=== PATIENT | male | born 1950 | race Caucasian/White ===

== ENCOUNTER 2019-07-30 12:09 | Inpatient (IN) | payer BC, OTHER ==
[~2019-07-30] VITALS: Ht 188 cm; Wt 111.8 kg
[~2019-07-30 12:09] MED LIST: ACET325T9 PO; AMLO5TAB10 PO; ASPI-482 PO; CEFU250T PO; CELE200C PO; DILT120C2 PO; DILT120T PO; DILT30TA26 PO; FLEC100T PO; HYDR-2678 PO; IBUP400T18 PO; METR500T PO; RIVA10TA PO; TERA5CAP3 PO
--- NOTE | 2019-07-30 12:44 | PHYS DOC ---
Past History Past Medical History: A-Fib, Hypertension Past Surgical History: Tonsillectomy, Other Smoking: Non-smoker Alcohol Use: Occasionally Drug Use: None General Adult EDM: Chief Complaint: WEAKNESS/GENERALIZED HPI: HPI: 68-year-old male significant history of hypertension, atrial fibrillation on Xarelto, CVA, who presents per direction of primary physician for evaluation of ongoing illness in the setting of recent diagnosis of COVID19. Has been feeling generally unwell over the last 5 days or so, described as diffuse myalgias and arthralgias, fevers, chills, mild cough and dyspnea. No chest pain. No abdominal pain, nausea or vomiting. Does report some loose bowel movements in termittently. Review of Systems: Review of Systems: Gen: Reports fever, chills. Eyes: No blurred vision, diplopia. ENT: No nasal congestion, sore throat. CV: No CP, palpitations. Resp. Reports SOB, cough. GI: No abd pain, N/V. : No dysuria, hematuria. Neuro: No JOHNSON, dizziness, weakness. MSK: No back pain. Reports myalgias. Skin: No acute rash or lesion. Heart Score: Risk Factors: Risk Factors: DM, Current or recent (<one month) smoker, HTN, HLP, family history of CAD, obesity. Risk Scores: Score 0 - 3: 2.5% MACE over next 6 weeks - Discharge Home Score 4 - 6: 20.3% MACE over next 6 weeks - Admit for Clinical Observation Score 7 - 10: 72.7% MACE over next 6 weeks - Early Invasive Strategies Allergies: Allergies: Allergies Coded Allergies Type Severity Reaction Last Updated Verified Sulfa (Sulfonamide Antibiotics) Allergy Intermediate Unknown 05/21/14 Yes Physical Exam: PE: Gen: NAD. Head: NC/AT. Eyes: No scleral icterus. No conjunctival injection. ENT: MMM. Posterior OP clear. Neck: Supple. NT. CV: RRR. Peripheral pulses intact. Resp: CTAB. Abd: Soft. NT. ND. MSK: No peripheral cyanosis. No edema. Neuro: Awake and alert. Skin. Warm. Dry. No acute rash. Psych: Appropriate mood & affect. Current Patient Data: Labs: Laboratory Tests Test 07/30/19 12:42 White Blood Count 7.1 x10^3/uL (4.0-11.0) Red Blood Count 3.89 x10^6/uL (4.30-5.70) L Hemoglobin 12.5 g/dL (13.0-17.5) L Hematocrit 36.7 % (39.0-53.0) L Mean Corpuscular Volume 94 fL (79-100) Mean Corpuscular Hemoglobin 32 pg (25-35) Mean Corpuscular Hemoglobin Concent 34 g/dL (31-37) Red Cell Distribution Width 12.8 % (11.5-14.5) Platelet Count 236 x10^3/uL (140-400) Neutrophils (%) (Auto) 85 % (31-73) H Lymphocytes (%) (Auto) 7 % (24-48) L Monocytes (%) (Auto) 8 % (0-9) Eosinophils (%) (Auto) 0 % (0-3) Basophils (%) (Auto) 0 % (0-3) Neutrophils # (Auto) 6.0 x10^3uL (1.8-7.7) Lymphocytes # (Auto) 0.5 x10^3/uL (1.0-4.8) L Monocytes # (Auto) 0.6 x10^3/uL (0.0-1.1) Eosinophils # (Auto) 0.0 x10^3/uL (0.0-0.7) Basophils # (Auto) 0.0 x10^3/uL (0.0-0.2) Sodium Level 135 mmol/L (136-145) L Potassium Level 4.2 mmol/L (3.5-5.1) Chloride Level 99 mmol/L (98-107) Carbon Dioxide Level 24 mmol/L (21-32) Anion Gap 12 (6-14) Blood Urea Nitrogen 21 mg/dL (8-26) Creatinine 1.5 mg/dL (0.7-1.3) H Estimated GFR (Cockcroft-Gault) 46.5 BUN/Creatinine Ratio 14 (6-20) Glucose Level 129 mg/dL (70-99) H Lactic Acid Level 1.7 mmol/L (0.4-2.0) Calcium Level 8.9 mg/dL (8.5-10.1) Magnesium Level 1.9 mg/dL (1.8-2.4) Total Bilirubin 0.7 mg/dL (0.2-1.0) Aspartate Amino Transferase (AST) 62 U/L (15-37) H Alanine Aminotransferase (ALT) 86 U/L (16-63) H Alkaline Phosphatase 71 U/L (46-116) Troponin I Quantitative < 0.017 ng/mL (0-0.055) FZ-Fjb-P-Type Natriuretic Peptide 887 pg/mL (0-124) H Total Protein 7.6 g/dL (6.4-8.2) Albumin 3.3 g/dL (3.4-5.0) L Albumin/Globulin Ratio 0.8 (1.0-1.7) L Vital Signs: Vital Signs Date Time Temp Pulse Resp B/P (MAP) Pulse Ox O2 Delivery O2 Flow Rate FiO2 07/30/19 12:34 100.4 84 16 136/91 (106) 98 Room Air EKG: EKG: [] Radiology/Procedures: Radiology/Procedures: CHEST AP ONLY 07/30/2019 12:38 PM INDICATION: Shortness of air COMPARISON: None available TECHNIQUE: Portable frontal view of the chest is provided. FINDINGS: The cardiomediastinal silhouette is within normal limits. There is bibasilar subsegmental atelectasis. There are no significant pleural effusions. There is no pulmonary vascular congestion. No pneumothorax. No suspicious osseous abnormality. Left rotator cuff anchors are present. IMPRESSION: There is bibasilar subsegmental atelectasis predominantly involving the medial lower lobes. Electronically signed by: Jennifer Echavarria MD (07/30/2019 1:36 PM) [facility] Course & Med Decision Making: Course & Med Decision Making Pertinent Labs and Imaging studies reviewed. (See chart for details) In summary, 68M p/w viral illness, known to be COVID19+ (also strep pneumoniae Ag positive). Labs unremarkable. CXR with atelectatic changes. Will admit to Dr. Graham. Amy Disclaimer: Amy Disclaimer: This electronic medical record was generated, in whole or in part, using a voice recognition dictation system. Departure Departure: Impression: Primary Impression: Generalized weakness Additional Impression: COVID-19 Disposition: 01 HOME/RESIDENCE PRIOR TO ADM Admitting Physician: Tasha Graham Condition: STABLE Referrals: TASHA GRAHAM MD (PCP) Justification of Admission: Justification of Admission: Justification of Admission Dx: Yes Comminuty Aquired Pneumonia: Out Pt Tx Failure Sepsis: Infection CAN LIZAMA DO Jul 30, 2019 12:44
[2019-07-30] MEDS ORDERED: ACETAMINOPHEN 325 MG TABLET PO ONE (12:45)
[2019-07-30] MEDS ORDERED: cefTRIAXone SODIUM 1 GM VIAL ONE (12:52)
[2019-07-30] MEDS ORDERED: IV NORMAL SALINE 50ML 50 ML ONE (12:52)
[2019-07-30 12:59] LABS: BASO % 0 % (0-3); EOS % 0 % (0-3); HEMATOCRIT 36.7 % (39.0-53.0); HEMOGLOBIN 12.5 g/dL (13.0-17.5); LYMPH # 0.5 x10^3/uL (1.0-4.8); LYMPH % 7 % (24-48); MEAN CORPUSCULAR HEMOGLOBIN 32 pg (25-35); MEAN CORPUSCULAR HGB CONC 34 g/dL (31-37); MEAN CORPUSCULAR VOLUME 94 fL (79-100); MONO # 0.6 x10^3/uL (0.0-1.1); MONO % 8 % (0-9); NEUT % 85 % (31-73); PLATELET COUNT 236 x10^3/uL (140-400); RED BLOOD COUNT 3.89 x10^6/uL (4.30-5.70); RED CELL DISTRIBUTION WIDTH 12.8 % (11.5-14.5); WHITE BLOOD COUNT 7.1 x10^3/uL (4.0-11.0)
[2019-07-30 13:10] LABS: CALCIUM 8.9 mg/dL (8.5-10.1); CREATININE 1.5 mg/dL (0.7-1.3); GFR 46.5; POTASSIUM 4.2 mmol/L (3.5-5.1)
[2019-07-30 13:22] LABS: ALBUMIN 3.3 g/dL (3.4-5.0); ALBUMIN/GLOBULIN RATIO 0.8 (1.0-1.7); MAGNESIUM 1.9 mg/dL (1.8-2.4); TOTAL BILIRUBIN 0.7 mg/dL (0.2-1.0); TOTAL PROTEIN 7.6 g/dL (6.4-8.2)
--- NOTE | 2019-07-30 13:38 | RAD ---
CHEST AP ONLY 07/30/2019 12:38 PM INDICATION: Shortness of air COMPARISON: None available TECHNIQUE: Portable frontal view of the chest is provided. FINDINGS: The cardiomediastinal silhouette is within normal limits. There is bibasilar subsegmental atelectasis. There are no significant pleural effusions. There is no pulmonary vascular congestion. No pneumothorax. No suspicious osseous abnormality. Left rotator cuff anchors are present. IMPRESSION: There is bibasilar subsegmental atelectasis predominantly involving the medial lower lobes. Electronically signed by: Jennifer Echavarria MD (07/30/2019 1:36 PM) [facility]
[2019-07-30] MEDS ORDERED: ACETAMINOPHEN 325 MG TABLET PO PRN (14:00)
[2019-07-30] MEDS ORDERED: ONDANSETRON PF 4 MG/2 ML VIAL. IVP PRN (14:00)
[2019-07-30] MEDS ORDERED: IV NORMAL SALINE 1,000ML 1,000 ML IV ONE (14:15)
[2019-07-30 17:00] VITALS: BP 135/84
[2019-07-30 19:25] VITALS: BP 122/97
[2019-07-30] MEDS ORDERED: PANT40TA5 PO (20:03)
[2019-07-30] MEDS ORDERED: RIVA20TA2 PO (20:03)
[2019-07-30] MEDS ORDERED: MELA3TAB4 PO (20:03)
[2019-07-30] MEDS ORDERED: ATOR20TA58 PO (20:03)
[2019-07-30] MEDS ORDERED: DOFE500C4 PO (20:03)
[2019-07-30] MEDS ORDERED: GABA600T7 PO (20:03)
[2019-07-30] MEDS ORDERED: MULT-245 PO (20:06)
[2019-07-30] MEDS ORDERED: ZOLPIDEM 5 MG TABLET. PO PRN (20:15)
[2019-07-30] MEDS ORDERED: ACETAMINOPHEN 500 MG TABLET PO PRN (20:15)
[2019-07-30] MEDS: MELATONIN 3 MG TABLET PO SCH (21:00)
[2019-07-30] MEDS: GABAPENTIN 300 MG CAPSULE. PO SCH (21:19)
[2019-07-30] MEDS: AZITHROMYCIN 250 MG TABLET. PO SCH (21:19)
[2019-07-30] MEDS: methylPREDNISolone 4 MG TABLET. PO SCH (21:19)
[2019-07-30] MEDS: TERAZOSIN 5 MG CAPSULE. PO SCH (21:20)
[2019-07-30] MEDS: ATORVASTATIN CALCIUM 20 MG TABLET PO SCH (21:20)
[2019-07-30] MEDS: RIVAROXABAN 10 MG TABLET. PO SCH (21:20)
[2019-07-30] MEDS: BENZONATATE 100 MG CAPSULE. PO SCH (21:21)
[2019-07-30] MEDS: Dofetilide 500 MCG PO SCH (22:04)
[2019-07-30 22:15] VITALS: BP 135/77
[2019-07-30] MEDS: ACETAMINOPHEN 500 MG TABLET PO PRN (22:18)
[2019-07-31 06:10] VITALS: BP 149/67
[2019-07-31] MEDS: PANTOPRAZOLE 40 MG TABLET. PO SCH (07:55)
[2019-07-31] MEDS: BENZONATATE 100 MG CAPSULE. PO SCH ×3 (07:55→20:38)
[2019-07-31] MEDS: methylPREDNISolone 4 MG TABLET. PO SCH (07:55)
[2019-07-31] MEDS: MULTIVITAMIN with MINERAL TABLET. PO SCH (07:55)
[2019-07-31] MEDS: Dofetilide 500 MCG PO SCH ×2 (07:56→20:39)
[2019-07-31] MEDS: GABAPENTIN 300 MG CAPSULE. PO SCH ×3 (07:56→20:38)
[2019-07-31] MEDS ORDERED: ALBUTEROL SULFATE 8GM INHALER. INH PRN (09:45)
[2019-07-31] MEDS: methylPREDNISolone SOD SUCC PF 40 MG/ML VIAL. IV SCH ×2 (10:21→20:38)
[2019-07-31 10:50] VITALS: BP 146/73
--- NOTE | 2019-07-31 12:44 | RAD ---
EXAM: CT CHEST WITHOUT CONTRAST HISTORY: Pneumonia COMPARISON: 11/26/2015 TECHNIQUE: Helical CT of the chest performed without contrast. Coronal and sagittal reformats were obtained. One or more of the following individualized dose reduction techniques were utilized for this examination: 1. Automated exposure control 2. Adjustment of the mA and/or kV according to patient size 3. Use of iterative reconstruction technique. FINDINGS: Thyroid gland and thoracic inlet: Normal. Heart and great vessels: Heart is normal in size. No pericardial effusion. Thoracic aorta is normal in caliber. Mediastinum and kesha: There are small mediastinal lymph nodes, decreased in size from 2016. Lungs and pleura: Most artifact limits evaluation of the lungs. There are new groundglass opacities in the lower lobes, left upper lobe, and much lesser extent in the right upper and lower lobes. There is a 5 mm pulmonary nodule in the left upper lobe, which may have been present on prior exam (image 26, series 2). Unchanged 3 mm pulmonary nodule in the right upper lobe (image 30, series 2). Multiple tree-in-bud nodules in the left upper and lower lobes on prior exam resolved. No pleural effusion. Chest wall and axillae: Normal. Upper abdomen: Normal. Bones: No acute osseous abnormality. IMPRESSION: 1. Limited evaluation of lungs due to motion artifact. There are new groundglass opacities in the lower lobes and left upper lobe, and a few in the right middle and upper lobes. This is nonspecific but may be due to atypical infection such as viral infection. 2. There are two 2-5 mm pulmonary nodules in the upper lobes. Multiple additional pulmonary nodules in the left upper and lower lobes on prior exam have resolved. Electronically signed by: Kristin Louie MD (07/31/2019 12:40 PM) [place] [id number]
[2019-07-31 14:39] VITALS: BP 123/74
[2019-07-31] MEDS: ACETAMINOPHEN 500 MG TABLET PO PRN (14:56)
[2019-07-31] MEDS: RIVAROXABAN 10 MG TABLET. PO SCH (16:11)
[2019-07-31 19:52] VITALS: BP 109/70
[2019-07-31] MEDS: ATORVASTATIN CALCIUM 20 MG TABLET PO SCH (20:38)
[2019-07-31] MEDS: MELATONIN 3 MG TABLET PO SCH (20:38)
[2019-07-31] MEDS: TERAZOSIN 5 MG CAPSULE. PO SCH (20:39)
[2019-07-31] MEDS: AZITHROMYCIN 250 MG TABLET. PO SCH (20:39)
--- NOTE | 2019-07-31 22:50 | PN ---
DATE: SUBJECTIVE: A 68-year-old gentleman returned back from [place], began to feel ill over the last week or so, came in and was found to have pneumonia, was placed on antibiotics as an outpatient. He continued to do worse with increased coughing, shortness of breath, fever, chills and generalized weakness. The patient came in through the Emergency Room, where he was seen. He was positive for COVID-19 and Streptococcus pneumoniae. He had elevated liver enzymes. The patient says he is a smidgen better this morning, but not much. OBJECTIVE: Blood pressure 146/73, respiratory rate 20, pulse 93. He is still running a low-grade temperature of 99.8, although on admission was up to 100.4. The patient continues on IV Rocephin, IV Solu-Medrol as well as that of Zithromax. The patient's liver enzymes are slightly elevated and would have to look backwards to see if that is a chronic problem. He is on antiarrhythmics, so hydroxychloroquine will be used with this situation. He is on dofetilide 500 ____ b.i.d. for arrhythmias as well as Xarelto anticoagulant. The patient is alert and oriented. He still does not look good, feel good. He is very weak. His lungs are diminished, primarily in the bases, with some crackles noted. Cardiovascular, regular sinus rhythm. Abdomen, soft, nontender. Extremities, no clubbing, cyanosis or edema. IMAGING: CT scan showed ____ artifact, ground glass opacities in the lower lobes, left lower lobe, a few in the right middle lobe. There is a 2.5-mm pulmonary nodule in the upper lobes. Multiple additional pulmonary nodules have close ____ for prior exams. In any case, the patient has COVID-19 pneumonia, acute respiratory failure. It is technically sepsis with elevated liver enzymes, anemia of chronic disease, cardiac arrhythmias. The patient continued to be monitored carefully. Continue with IV antibiotic therapy, increase it to 2 grams. We will also consider the use of remdesivir as a possible adjunct to his therapy, if he does not continue to show signs of improvement. His oxygen saturation has hovered as low as 92%, so he does seem to meet some protocol as well as some other indications. IMPRESSION: As above, we will continue close monitoring. He is on the COVID-19 unit in isolation. TASHA GRAHAM MD DR: CORETTA/herson JOB#: [id number] / [id number]
[2019-08-01 00:50] VITALS: BP 114/64
[2019-08-01 06:12] VITALS: BP 131/82
[2019-08-01 06:40] LABS: BASO % 0 % (0-3); EOS % 0 % (0-3); HEMATOCRIT 33.4 % (39.0-53.0); HEMOGLOBIN 11.3 g/dL (13.0-17.5); LYMPH # 0.4 x10^3/uL (1.0-4.8); LYMPH % 3 % (24-48); MEAN CORPUSCULAR HEMOGLOBIN 33 pg (25-35); MEAN CORPUSCULAR HGB CONC 34 g/dL (31-37); MEAN CORPUSCULAR VOLUME 96 fL (79-100); MONO # 0.5 x10^3/uL (0.0-1.1); MONO % 5 % (0-9); NEUT # 10.9 x10^3uL (1.8-7.7); NEUT % 92 % (31-73); PLATELET COUNT 248 x10^3/uL (140-400); RED BLOOD COUNT 3.47 x10^6/uL (4.30-5.70); RED CELL DISTRIBUTION WIDTH 12.9 % (11.5-14.5); WHITE BLOOD COUNT 11.9 x10^3/uL (4.0-11.0)
[2019-08-01 06:55] LABS: CALCIUM 8.7 mg/dL (8.5-10.1); CREATININE 1.4 mg/dL (0.7-1.3); GFR 50.4
[2019-08-01 06:59] LABS: ALBUMIN 2.8 g/dL (3.4-5.0); DIRECT BILIRUBIN 0.2 mg/dL (0.0-0.2); TOTAL BILIRUBIN 0.5 mg/dL (0.2-1.0); TOTAL PROTEIN 7.8 g/dL (6.4-8.2)
[2019-08-01] MEDS: BENZONATATE 100 MG CAPSULE. PO SCH ×3 (08:19→21:02)
[2019-08-01] MEDS: GABAPENTIN 300 MG CAPSULE. PO SCH ×3 (08:19→21:02)
[2019-08-01] MEDS: MULTIVITAMIN with MINERAL TABLET. PO SCH (08:19)
[2019-08-01] MEDS: PANTOPRAZOLE 40 MG TABLET. PO SCH (08:20)
[2019-08-01] MEDS: Dofetilide 500 MCG PO SCH ×2 (08:20→21:01)
[2019-08-01] MEDS: methylPREDNISolone SOD SUCC PF 40 MG/ML VIAL. IV SCH ×2 (08:20→21:00)
[2019-08-01] MEDS ORDERED: OSELTAMIVIR 75 MG CAPSULE PO SCH (09:15)
[2019-08-01] MEDS ORDERED: NON FORMULARY ITEM 1 EA in IV NORMAL SALINE 250ML 250 ML IV ONE (10:30)
[2019-08-01 11:00] VITALS: BP 134/77
[2019-08-01 14:44] VITALS: BP 138/79
--- NOTE | 2019-08-01 14:52 | RAD ---
EXAM: Abdomen sonogram. HISTORY: Elevated liver function laboratory values. TECHNIQUE: Sonographic imaging of the abdomen was performed. COMPARISON: None. FINDINGS: The liver parenchyma is echogenic. There is a 9 mm circumscribed echogenic right hepatic lobe. The gallbladder is contracted due to the postprandial status the patient. This limits evaluation. The common bile duct is normal in caliber for patient age. The right kidney is unremarkable. The pancreas is unremarkable. The inferior cava is obscured. No ascites is seen. IMPRESSION: 1. Hepatic steatosis. 2. 9 mm echogenic lesion within the liver. In the absence of known malignancy, this likely a hemangioma. 3. Contracted gallbladder, limiting evaluation. Electronically signed by: Carmella Duncan MD (08/01/2019 2:48 PM) [facility]
[2019-08-01] MEDS: RIVAROXABAN 10 MG TABLET. PO SCH (17:12)
[2019-08-01 19:56] VITALS: BP 160/89
[2019-08-01] MEDS: MELATONIN 3 MG TABLET PO SCH (21:00)
[2019-08-01] MEDS: AZITHROMYCIN 250 MG TABLET. PO SCH (21:02)
[2019-08-01] MEDS: TERAZOSIN 5 MG CAPSULE. PO SCH (21:02)
[2019-08-01] MEDS: ATORVASTATIN CALCIUM 20 MG TABLET PO SCH (21:02)
--- NOTE | 2019-08-01 22:31 | PN ---
DATE: 08/01/2019 SUBJECTIVE: A 68-year-old male in with sepsis and positive SIRS. The patient otherwise seems to be doing reasonably somewhat better, but still requires additional oxygen, remained in his oxygen saturation. He also had elevated liver enzymes and his hepatic steatosis and there is a lesion, possibly could be a hemangioma, possible malignancy. We will have to follow that up as an outpatient. OBJECTIVE: VITAL SIGNS: The patient's blood pressure is 138/79, respiratory rate 20, pulse 90, afebrile presently. LUNGS: Diminished, poor movement of air, but improved somewhat from previous days. His oxygen saturation did drop down to 89% on room air. He is back on 1-2 liters as indicated. Otherwise, alert and oriented. CARDIOVASCULAR: Regular sinus rhythm. ABDOMEN: Soft, nontender. EXTREMITIES: No clubbing, cyanosis or edema. PLAN: Continue to monitor the patient accordingly, make further evaluation on him as indicated. IMPRESSION: Sepsis; SIRS-19 infection and Streptococcus pneumoniae; anemia of chronic disease; liver enzymes coming down, continue to monitor and severe protein malnutrition. TASHA GRAHAM MD DR: CORETTA/herson JOB#: [id number] / [id number]
[2019-08-01 22:50] VITALS: BP 137/78
[2019-08-02 05:39] VITALS: BP 113/66
[2019-08-02 08:11] LABS: CREATININE 1.5 mg/dL (0.7-1.3); GFR 46.5
[2019-08-02] MEDS: Dofetilide 500 MCG PO SCH ×2 (08:28→20:58)
[2019-08-02] MEDS: GABAPENTIN 300 MG CAPSULE. PO SCH ×3 (08:29→20:58)
[2019-08-02] MEDS: MULTIVITAMIN with MINERAL TABLET. PO SCH (08:29)
[2019-08-02] MEDS: PANTOPRAZOLE 40 MG TABLET. PO SCH (08:29)
[2019-08-02] MEDS: methylPREDNISolone SOD SUCC PF 40 MG/ML VIAL. IV SCH ×2 (08:29→20:59)
[2019-08-02] MEDS: BENZONATATE 100 MG CAPSULE. PO SCH ×3 (08:30→20:59)
[2019-08-02 08:32] LABS: ALBUMIN 2.6 g/dL (3.4-5.0); DIRECT BILIRUBIN 0.2 mg/dL (0.0-0.2); TOTAL BILIRUBIN 0.4 mg/dL (0.2-1.0); TOTAL PROTEIN 7.4 g/dL (6.4-8.2)
[2019-08-02] MEDS: NORMAL SALINE IV SCH (10:14)
[2019-08-02] MEDS: REMDESIVIR IV SCH (10:14)
[2019-08-02 10:26] VITALS: BP 148/84
--- NOTE | 2019-08-02 11:28 | PN ---
DATE: SUBJECTIVE: This is a very pleasant 68-year-old gentleman with sepsis. The patient has COVID-19 infection. He is doing a little bit better. We placed him on remdesivir, the new antiviral, specifically for this particular type of infection. We have also given him situation of some mild methylprednisolone. His oxygen saturation did at one time dropped down to 89. He continues on supplemental oxygen at 1 liter in the low 90s, blood pressure 148/84, respiratory rate 20, pulse 67, afebrile. We will go ahead and repeat chest x-ray in the morning. He does have some elevated liver enzymes, hepatitis panel is pending and we will continue to monitor him. He is alert and oriented. He is a little bit stronger. Lungs are diminished in the bases, slightly improved, but still coarse. He is coughing up phlegm, using his oral MDI. The patient otherwise creatinine is still slightly elevated at 1.5. Liver enzymes have gone up and we are monitoring that in conjunction with the remdesivir for any possible drug interaction pharmacies on top of that drug. He is getting that 200 mg IV and being monitored carefully. IMPRESSION: Therefore, [id number] Streptococcus pneumoniae, acute respiratory distress requiring additional supplemental oxygen, acute on top of chronic renal failure, history of pulmonary nodule, elevated liver enzymes, severe protein malnutrition. PLAN: The patient continued to be monitored carefully, make further evaluation. Continue on IV antibiotic therapy, the remdesivir and steady progress being made there. TASHA GRAHAM MD DR: CORETTA/herson JOB#: [id number] / [id number]
[2019-08-02 15:13] VITALS: BP 147/89
[2019-08-02] MEDS ORDERED: POLYETHYLENE GLYCOL 3350 17 GM PACKET. PO ONE (15:30)
[2019-08-02] MEDS: RIVAROXABAN 10 MG TABLET. PO SCH (17:08)
[2019-08-02 20:35] VITALS: BP 162/81
[2019-08-02] MEDS: ATORVASTATIN CALCIUM 20 MG TABLET PO SCH (20:58)
[2019-08-02] MEDS: TERAZOSIN 5 MG CAPSULE. PO SCH (20:58)
[2019-08-02] MEDS: AZITHROMYCIN 250 MG TABLET. PO SCH (20:59)
[2019-08-02] MEDS: MELATONIN 3 MG TABLET PO SCH (20:59)
[2019-08-02 23:34] VITALS: BP 141/73
[2019-08-03 06:14] VITALS: BP 150/86
[2019-08-03 08:20] LABS: BASO % 0 % (0-3); EOS % 0 % (0-3); HEMATOCRIT 34.1 % (39.0-53.0); HEMOGLOBIN 11.6 g/dL (13.0-17.5); LYMPH # 0.5 x10^3/uL (1.0-4.8); LYMPH % 5 % (24-48); MEAN CORPUSCULAR HEMOGLOBIN 33 pg (25-35); MEAN CORPUSCULAR HGB CONC 34 g/dL (31-37); MEAN CORPUSCULAR VOLUME 96 fL (79-100); MONO # 0.7 x10^3/uL (0.0-1.1); MONO % 7 % (0-9); NEUT % 88 % (31-73); PLATELET COUNT 319 x10^3/uL (140-400); RED BLOOD COUNT 3.54 x10^6/uL (4.30-5.70); RED CELL DISTRIBUTION WIDTH 13.1 % (11.5-14.5); WHITE BLOOD COUNT 9.1 x10^3/uL (4.0-11.0)
[2019-08-03 08:30] LABS: ALBUMIN 2.6 g/dL (3.4-5.0); CALCIUM 8.9 mg/dL (8.5-10.1); CREATININE 1.4 mg/dL (0.7-1.3); DIRECT BILIRUBIN 0.2 mg/dL (0.0-0.2); GFR 50.4; POTASSIUM 4.5 mmol/L (3.5-5.1); TOTAL BILIRUBIN 0.4 mg/dL (0.2-1.0); TOTAL PROTEIN 7.3 g/dL (6.4-8.2)
[2019-08-03] MEDS: BENZONATATE 100 MG CAPSULE. PO SCH ×3 (08:54→21:08)
[2019-08-03] MEDS: GABAPENTIN 300 MG CAPSULE. PO SCH ×3 (08:54→21:07)
[2019-08-03] MEDS: PANTOPRAZOLE 40 MG TABLET. PO SCH (08:54)
[2019-08-03] MEDS: MULTIVITAMIN with MINERAL TABLET. PO SCH (08:54)
[2019-08-03] MEDS: methylPREDNISolone SOD SUCC PF 40 MG/ML VIAL. IV SCH ×2 (08:54→21:07)
[2019-08-03] MEDS: POLYETHYLENE GLYCOL 3350 17 GM PACKET. PO SCH (08:54)
[2019-08-03] MEDS: NORMAL SALINE IV SCH (08:55)
[2019-08-03] MEDS: REMDESIVIR IV SCH (08:55)
[2019-08-03] MEDS: Dofetilide 500 MCG PO SCH ×2 (09:00→21:07)
[2019-08-03 10:23] VITALS: BP 158/88
[2019-08-03] MEDS: amLODIPine BESYLATE 5 MG TABLET PO SCH (14:11)
[2019-08-03 15:09] VITALS: BP 143/83
--- NOTE | 2019-08-03 15:30 | RAD ---
PORTABLE CHEST 1V History: Shortness of breath, positive COVID Comparison: July 30, 2019 Findings: Single view of the chest is submitted. There is increased infiltrate of the mid to superior hemithorax, also some patchy infiltrate of the mid to inferior left hemithorax slightly increased. There is no pneumothorax or significant dependent pleural fluid. Heart size is similar. There are anchor devices of the proximal left humerus. Impression: 1. There is some increased infiltrate of the mid to right hemithorax likely in the right upper lobe, also persistent left base infiltrate slightly increased. Electronically signed by: Parveen Gonzalez MD (08/03/2019 3:27 PM) [id number]
[2019-08-03] MEDS: RIVAROXABAN 10 MG TABLET. PO SCH (17:17)
--- NOTE | 2019-08-03 17:38 | PN ---
DATE: SUBJECTIVE: He is a 68-year-old white male in with sepsis. He has COVID-19 pneumonia. He has had acute respiratory failure. He is anemic. He says he is feeling a little better. He has elevated liver enzymes as well that are being followed because he is on the remdesivir antiviral and using methylprednisolone IV as well as oral MDIs. The oxygen saturations have been varied. His last one in the chart was at 90% with 2.5 liters. We will repeat chest x-ray. Blood pressure 158/88, respiratory rate 20, pulse 73. He has been afebrile now for the last 36 hours. We will continue to monitor him on that. We will repeat the COVID-19 test. Otherwise, his creatinine has stayed at 1.4 with a GFR of 50, blood sugar 182, AST of 91, ALT of 280, albumin low at 2.6. White count 9, hemoglobin 11.6 and hematocrit 34. The patient continues on his Levaquin and Zithromax as well. He says he feels a little stronger. PHYSICAL EXAMINATION: GENERAL: He is alert and oriented. LUNGS: Just some mild crackles in the left lower lobe, otherwise, basically clear, although diminished. CARDIOVASCULAR: Regular sinus rhythm. ABDOMEN: Soft, somewhat distended. He has been having good bowel movements. He is moving around freely in his room and he is on Xarelto. IMPRESSION: Therefore, sepsis, SARS COVID-19, Streptococcus pneumoniae, acute respiratory distress requiring additional supplemental oxygen, anemia, acute on top of chronic renal failure, history of pulmonary nodule, elevated liver enzymes, severe protein malnutrition and hyperglycemia secondary to the methylprednisolone. PLAN: We will continue to monitor the patient and get a chest x-ray, repeat COVID testing and make further adjustments of meds depending on that situation because he still requires oxygen at a fairly good rate just to maintain above in the low 90s. We will continue to monitor at this time. TASHA GRAHAM MD DR: CORETTA/herson JOB#: [id number] / [id number]
[2019-08-03] MEDS: MELATONIN 3 MG TABLET PO SCH (21:00)
[2019-08-03] MEDS: TERAZOSIN 5 MG CAPSULE. PO SCH (21:07)
[2019-08-03] MEDS: AZITHROMYCIN 250 MG TABLET. PO SCH (21:08)
[2019-08-03] MEDS: ATORVASTATIN CALCIUM 20 MG TABLET PO SCH (21:08)
[2019-08-03 21:24] VITALS: BP 134/73
[2019-08-03 23:30] VITALS: BP 114/58
[2019-08-04 05:49] VITALS: BP 135/76
[2019-08-04] MEDS: BENZONATATE 100 MG CAPSULE. PO SCH ×2 (08:20→12:54)
[2019-08-04] MEDS: MULTIVITAMIN with MINERAL TABLET. PO SCH (08:20)
[2019-08-04] MEDS: GABAPENTIN 300 MG CAPSULE. PO SCH ×2 (08:20→12:54)
[2019-08-04] MEDS: methylPREDNISolone SOD SUCC PF 40 MG/ML VIAL. IV SCH (08:20)
[2019-08-04] MEDS: AZITHROMYCIN 250 MG TABLET. PO SCH (08:21)
[2019-08-04] MEDS: POLYETHYLENE GLYCOL 3350 17 GM PACKET. PO SCH (08:21)
[2019-08-04] MEDS: amLODIPine BESYLATE 5 MG TABLET PO SCH (08:21)
[2019-08-04] MEDS: PANTOPRAZOLE 40 MG TABLET. PO SCH (08:22)
[2019-08-04] MEDS: Dofetilide 500 MCG PO SCH (08:22)
[2019-08-04] MEDS ORDERED: CHOLECALCIFEROL (VITAMIN D3) 1,000 UNIT TABLET PO SCH (09:00)
[2019-08-04 11:06] VITALS: BP 158/88
[2019-08-04] MEDS: REMDESIVIR IV SCH (11:20)
[2019-08-04] MEDS: NORMAL SALINE IV SCH (11:20)
== END 2019-08-04 16:30 | disposition short-term general hospital (02) | DRG 871 ==
LOC: ER 12:09 → 1 SOUTH 14:00
PROVIDERS: ADMIT Family Medicine; ATTEND Family Medicine
DX: A41.89 Other specified sepsis (principal); E43 Unspecified severe protein-calorie malnutrition; J12.89 Other viral pneumonia; U07.1 COVID-19; J96.00 Acute respiratory failure, unspecified whether with hypoxia or hypercapnia; J98.11 Atelectasis; B95.3 Streptococcus pneumoniae as the cause of diseases classified elsewhere; D63.8 Anemia in other chronic diseases classified elsewhere; I12.9 Hypertensive chronic kidney disease with stage 1 through stage 4 chronic kidney disease, or unspecified chronic kidney disease; I48.91 Unspecified atrial fibrillation; K76.0 Fatty (change of) liver, not elsewhere classified; N18.9 Chronic kidney disease, unspecified; R73.9 Hyperglycemia, unspecified; T38.0X5A Adverse effect of glucocorticoids and synthetic analogues, initial encounter; Z79.01 Long term (current) use of anticoagulants; Z86.73 Personal history of transient ischemic attack (TIA), and cerebral infarction without residual deficits; Y92.89 Other specified places as the place of occurrence of the external cause; Z68.31 Body mass index [BMI] 31.0-31.9, adult; Z88.2 Allergy status to sulfonamides
CPT/HCPCS: 36415; 71045; 71250; 76705; 80048; 80053; 80076; 82565; 83605; 83735; 83880; 84484; 85025; 86705; 86709; 86803; 87040; 87340; 96361; 96365; J0456; J0696; J1956; J2920; J7050; J7509; 99285-25; J7030; U0003-CS

== ENCOUNTER 2021-02-07 12:22 | Emergency (ER) | payer OTHER ==
[~2021-02-07] VITALS: Ht 188 cm; Wt 111.8 kg
[~2021-02-07 12:22] MED LIST changes: +AMLO-186 PO; -AMLO5TAB10 PO; +ATOR20TA58 PO; +DOFE500C4 PO; +GABA600T7 PO; +MELA3TAB4 PO; +MULT-245 PO; +PANT40TA6 PO; +RIVA20TA2 PO
[2021-02-07] MEDS ORDERED: ACETAMINOPHEN 500 MG TABLET PO ONE (12:33)
[2021-02-07] MEDS ORDERED: FAMOTIDINE 20 MG/2 ML VIAL IVP ONE (13:15)
[2021-02-07] MEDS ORDERED: IV NORMAL SALINE 1,000ML 1,000 ML IV SCH (13:15)
[2021-02-07] MEDS ORDERED: ONDANSETRON PF 4 MG/2 ML VIAL. IVP ONE (13:15)
[2021-02-07 13:32] LABS: BASO % 0 % (0-3); EOS % 0 % (0-3); HEMATOCRIT 37.2 % (39.0-53.0); HEMOGLOBIN 12.5 g/dL (13.0-17.5); LYMPH # 0.5 x10^3/uL (1.0-4.8); LYMPH % 6 % (24-48); MEAN CORPUSCULAR HEMOGLOBIN 33 pg (25-35); MEAN CORPUSCULAR HGB CONC 34 g/dL (31-37); MEAN CORPUSCULAR VOLUME 99 fL (79-100); MONO # 0.5 x10^3/uL (0.0-1.1); MONO % 6 % (0-9); NEUT # 7.9 x10^3uL (1.8-7.7); NEUT % 88 % (31-73); PLATELET COUNT 224 x10^3/uL (140-400); RED BLOOD COUNT 3.77 x10^6/uL (4.30-5.70); RED CELL DISTRIBUTION WIDTH 12.9 % (11.5-14.5)
[2021-02-07 13:37] LABS: CALCIUM 8.2 mg/dL (8.5-10.1); GFR 33.2; POTASSIUM 3.8 mmol/L (3.5-5.1)
--- NOTE | 2021-02-07 13:40 | RAD ---
EXAM: Chest, single view. HISTORY: Nausea and vomiting. COMPARISON: 08/03/2019 FINDINGS: A frontal view of the chest is obtained. There is chronic appearing diffuse increased inter stitial opacity. There is no consolidation, pleural effusion or pneumothorax. The heart is normal in size. IMPRESSION: Chronic appearing interstitial changes. No acute pulmonary finding. Electronically signed by: Carmella Duncan MD (02/07/2021 1:38 PM) [id number]
[2021-02-07 13:43] LABS: ALBUMIN 3.6 g/dL (3.4-5.0); DIRECT BILIRUBIN 0.1 mg/dL (0.0-0.2); TOTAL BILIRUBIN 0.5 mg/dL (0.2-1.0)
[2021-02-07 13:44] LABS: INFLUENZA A PATIENT NEGATIVE (NEGATIVE); INFLUENZA B PATIENT NEGATIVE (NEGATIVE)
--- NOTE | 2021-02-07 13:58 | PHYS DOC ---
Past History Past Medical History: A-Fib, Hypertension Past Surgical History: Tonsillectomy, Other Additional Past Surgical Histo: cardiac ablation Smoking: Non-smoker Alcohol Use: None Drug Use: None General Adult EDM: Chief Complaint: WEAKNESS/GENERALIZED HPI: HPI: 70-year-old male past medical history of hypertension and atrial fibrillation, presents the ED with complaints of nausea, vomiting and loose watery diarrhea with associated fever and weakness that started last night. Denies any known sick contacts, poorly prepared food or water. is present in the ED, (patient consents to his/her/their knowledge and involvement in pts' medical care), and asymptomatic. Reports he is vaccinated for Covid and influenza. Believes his sxs are related to a "bad reaction" from a muscle relaxer stating "it made me too relaxed." Review of Systems: Review of Systems: Constitutional: Denies rigidity or chills Eyes: Denies change in visual acuity HENT: Denies nasal congestion or sore throat Respiratory: Denies cough or shortness of breath Cardiovascular: Denies chest pain or edema GI: Denies abdominal pain or constipation or melena or hematochezia or hematemesis : Denies dysuria or hematuria Musculoskeletal: Denies back pain or joint pain Integument: Denies rash or diaphoresis Neurologic: Denies headache, neck stiffness, focal weakness or sensory changes Endocrine: Denies polyuria or polydipsia Lymphatic: Denies swollen glands Psychiatric: Denies depression or anxiety Current Medications: Current Meds: Current Medications Medications (Trade) Dose Ordered Sig/Susan Start Time Stop Time Status Last Admin Dose Admin Acetaminophen (Tylenol) 500 mg STK-MED ONCE 02/07/21 12:33 02/07/21 12:33 DC Famotidine (Pepcid Vial) 20 mg 1X ONCE 02/07/21 13:15 02/07/21 13:16 DC Ondansetron HCl (Zofran) 4 mg 1X ONCE 02/07/21 13:15 02/07/21 13:16 DC Sodium Chloride 1,000 ml @ 1,000 mls/hr Q1H 02/07/21 13:15 02/07/21 14:14 Allergies: Allergies: Allergies Coded Allergies Type Severity Reaction Last Updated Verified Sulfa (Sulfonamide Antibiotics) Allergy Intermediate Unknown 05/21/14 Yes Physical Exam: PE: Constitutional: Well developed, well nourished, no acute distress, non-toxic appearance, febrile HENT: Normocephalic, atraumatic, dry mucous membranes Eyes: EOMI, conjunctiva normal, no discharge. Neck: Normal range of motion, supple, Cardiovascular: S1/2 present, regular rhythm Lungs & Thorax: Speaking in full sentences, bilateral equal chest rise, no tachypnea or increased work of breathing Abdomen: soft, no tenderness, obese, no rigidity Skin: Warm, dry, no erythema, no rash. [] Back: No tenderness, no CVA tenderness. [] Extremities: No tenderness, no cyanosis, no lower extremity edema Neurologic: Alert and oriented X 3, normal motor function, normal sensory function, no focal deficits noted. [] Psychologic: Affect normal, judgement normal, mood normal. [] Current Patient Data: Labs: Laboratory Tests Test 02/07/21 12:38 02/07/21 12:40 Influenza Type A (Rapid) Negative (NEGATIVE) Influenza Type B (Rapid) Negative (NEGATIVE) SARS-CoV-2 Antigen (Rapid) Negative (NEGATIVE) White Blood Count 9.0 x10^3/uL (4.0-11.0) Red Blood Count 3.77 x10^6/uL (4.30-5.70) L Hemoglobin 12.5 g/dL (13.0-17.5) L Hematocrit 37.2 % (39.0-53.0) L Mean Corpuscular Volume 99 fL (79-100) Mean Corpuscular Hemoglobin 33 pg (25-35) Mean Corpuscular Hemoglobin Concent 34 g/dL (31-37) Red Cell Distribution Width 12.9 % (11.5-14.5) Platelet Count 224 x10^3/uL (140-400) Neutrophils (%) (Auto) 88 % (31-73) H Lymphocytes (%) (Auto) 6 % (24-48) L Monocytes (%) (Auto) 6 % (0-9) Eosinophils (%) (Auto) 0 % (0-3) Basophils (%) (Auto) 0 % (0-3) Neutrophils # (Auto) 7.9 x10^3uL (1.8-7.7) H Lymphocytes # (Auto) 0.5 x10^3/uL (1.0-4.8) L Monocytes # (Auto) 0.5 x10^3/uL (0.0-1.1) Eosinophils # (Auto) 0.0 x10^3/uL (0.0-0.7) Basophils # (Auto) 0.0 x10^3/uL (0.0-0.2) Sodium Level 141 mmol/L (136-145) Potassium Level 3.8 mmol/L (3.5-5.1) Chloride Level 104 mmol/L (98-107) Carbon Dioxide Level 21 mmol/L (21-32) Anion Gap 16 (6-14) H Blood Urea Nitrogen 32 mg/dL (8-26) H Creatinine 2.0 mg/dL (0.7-1.3) H Estimated GFR (Cockcroft-Gault) 33.2 Glucose Level 184 mg/dL (70-99) H Calcium Level 8.2 mg/dL (8.5-10.1) L Total Bilirubin 0.5 mg/dL (0.2-1.0) Direct Bilirubin 0.1 mg/dL (0.0-0.2) Aspartate Amino Transferase (AST) 12 U/L (15-37) L Alanine Aminotransferase (ALT) 21 U/L (16-63) Alkaline Phosphatase 107 U/L (46-116) Creatine Kinase 44 U/L (39-308) Troponin I High Sensitivity 7 ng/L (4-75) Total Protein 7.0 g/dL (6.4-8.2) Albumin 3.6 g/dL (3.4-5.0) Lipase 31 U/L (73-393) L Vital Signs: Vital Signs Date Time Temp Pulse Resp B/P (MAP) Pulse Ox O2 Delivery O2 Flow Rate FiO2 02/07/21 12:54 103.3 74 18 143/62 (89) 95 Room Air EKG: EKG: [] Radiology/Procedures: Radiology/Procedures: IMAGING REPORT Signed PATIENT: STEVE DURANT PACCOUNT: [id number] : 1950 LOCATION: ER AGE: 70 SEX: M EXAM STATUS: REG ER ORD. PHYSICIAN: DANICA AGOSTO DO REASON: n/v/d PROCEDURE: PORTABLE CHEST 1V EXAM: Chest, single view. HISTORY: Nausea and vomiting. COMPARISON: 08/03/2019 FINDINGS: A frontal view of the chest is obtained. There is chronic appearing diffuse increased interstitial opacity. There is no consolidation, pleural effusion or pneumothorax. The heart is normal in size. IMPRESSION: Chronic appearing interstitial changes. No acute pulmonary finding. Electronically signed by: Carmella Sky MD (02/07/2021 1:38 PM) [id number] DICTATED AND SIGNED BY: CARMELLA SKY MD DATE: 02/07/211336 CC: TASHA GRAHAM MD; [facility] ~MTH0 0 Heart Score: C/O Chest Pain: No Risk Factors: Risk Factors: DM, Current or recent (<one month) smoker, HTN, HLP, family history of CAD, obesity. Risk Scores: Score 0 - 3: 2.5% MACE over next 6 weeks - Discharge Home Score 4 - 6: 20.3% MACE over next 6 weeks - Admit for Clinical Observation Score 7 - 10: 72.7% MACE over next 6 weeks - Early Invasive Strategies Course & Med Decision Making: Course & Med Decision Making Pertinent Labs and Imaging studies reviewed. (See chart for details) Concern for nausea, vomiting, diarrhea in the setting of fever and generalized weakness. Rapid flu and Covid negative. Patient with chronic kidney disease on labs. No electrolyte abnormality. Fever reduced after antipyretics. Suspect mild infectious process in a well-appearing, hemodynamically stable, nontoxic male. Will prescribe Zofran ODT. Will discharge home with strict ED return precautions were given for worsening fever, pain, intractable nausea or vomiting or dehydration. Encouraged urgent outpatient follow-up with PMD for repeat evaluation. Life-threatening processes were considered but are low suspicion at this time, given history, physical exam and ED workup. Pt was educated on all prescription medications and adverse effects. All patient's questions were answered and pt was stable at time of discharge. Life/limb-threatening differential includes but is not limited to, acute coronary syndrome/myocardial infarction, Boerhaave's, DKA, gastrointestinal bleeding, intracranial hemorrhage, ischemic bowel, meningitis, sepsis, surgical abdomen (AAA), toxidrome (drug over/overdose/carbon monoxide, etc), ovarian/testicular torsion, trauma, or infection/sepsis. I have spoken with the patient and/or caregivers. I explained the patient's condition, diagnoses and treatment plan based on the information available to me at this time. I have answered the patient and/or caregiver's questions and addressed any concerns. The patient and/or caregivers have a good understanding of patient's diagnosis, condition and treatment plan as can be expected at this point. Vital signs have been stable. Patient's condition is stable and appropriate for discharge from the emergency department. Patient will pursue further outpatient evaluation with primary care physician or other designated or consulting physician as outlined in the discharge instructions. The patient and/or caregivers are agreeable to this plan of care and follow-up instructions have been explained in detail. The patient and/or caregivers have received these instructions in written form and have expressed an understanding of the discharge instructions. The patient and/or caregivers are aware that any significant change of condition or worsening of symptoms should prompt immediate return to this or the closest emergency department or call to 354. Amy Disclaimer: Amy Disclaimer: This electronic medical record was generated, in whole or in part, using a voice recognition dictation system. Departure Departure: Impression: Primary Impression: Nausea vomiting and diarrhea Additional Impression: Fever Disposition: 01 HOME / SELF CARE / HOMELESS Condition: STABLE Referrals: TASHA GRAHAM MD (PCP) Follow up with your pcp in 1-2 days or [facility] [phone] OR [facility] Graham [phone] Patient Instructions: Diarrhea, Fever, Adult, Nausea and Vomiting Additional Instructions: EMERGENCY DEPARTMENT GENERAL DISCHARGE INSTRUCTIONS Thank you for coming to [facility] (ED) today and trusting us with you care. We trust that you had a positivie experience in our Emergency Department. If you wish to speak to the department management, you may call the director at [phone]. YOUR FOLLOW UP INSTRUCTIONS ARE FOLLOWS: 1. Do you have a private Doctor? If you do not have a private doctor, please ask for a resource list of physicians or clinics that may be able to assist you with follow up care. 2. The Emergency Physician has interpreted your x-rays. The X-Ray specialist will also review them. If there is a change in the findings, you will be notified in 48 hours when at all possible. 3. A lab test or culture has been done, your results will be reviewed and you will be notified if you need a change in treatment. ADDITIONAL INSTRUCTIONS AND INFORMATION: 1. Your care today has been supervised by a physician who is specially trained in emergency care. Many problems require more than one evaluation for a complete diagnosis and treatment. We recommend that you schedule your follow up appointment as recommended to ensure complete treatment of you illness or injury. If you are unable to obtain follow up care and continue to have a problem, or if your condition worsens, we recommend that you return to the ED. 2. We are not able to safely determine your condition over the phone nor are we able to give sound medical advice over the phone. For these safety reasons, if you call for medical advice we will ask you to come to the ED for further evaluation. 3. If you have any questions regarding these discharge instructions please call the ED at [phone]. SAFETY INFORMATION: In the interest of safety, wellness, and injury prevention; we encourage you to wear your sealbelt, if you smoke; quite smoking, and we encourage family to use a protective helmet for bicycling and other sporting events that present an increased risk for head injury. IF YOUR SYMPTOMS WORSEN OR NEW SYMPTOMS DEVELOP, OR YOU HAVE CONCERNS ABOUT YOUR CONDITION; OR IF YOUR CONDITION WORSENS WHILE YOU ARE WAITING FOR YOUR FOLLOW UP APPOINT MENT; EITHER CONTACT YOUR PRIMARY CARE DOCTOR, THE PHYSICIAN WHOSE NAME AND NUMBER YOU WERE GIVEN, OR RETURN TO THE ED IMMEDIATELY. Scripts Ondansetron (ONDANSETRON ODT) 4 Mg Tab.rapdis 4 MG PO Q6HRS for Nausea/Vomiting, #15 TAB Prov: DANICA AGOSTO DO 02/07/21 DANICA AGOSTO DO Feb 07, 2021 13:58
[2021-02-07 15:28] VITALS: BP 152/56
[2021-02-07] MEDS ORDERED: ONDA4TAB12 PO (15:46)
== END 2021-02-07 16:10 | disposition home or self-care (01) ==
LOC: ER 12:22
DX: R11.2 Nausea with vomiting, unspecified (principal); R19.7 Diarrhea, unspecified; R50.9 Fever, unspecified; R53.1 Weakness; I48.91 Unspecified atrial fibrillation; I10 Essential (primary) hypertension; Z20.822 Contact with and (suspected) exposure to COVID-19; Z88.2 Allergy status to sulfonamides
CPT/HCPCS: 71045; 80048; 80076; 82550; 83690; 84484; 85025; 87426; 87804; 99284; C9803; U0003